=== PATIENT | male | born 1950 | race Caucasian/White ===

== ENCOUNTER 2023-04-14 12:21 | Outpatient (CLI) | payer OTHER, SELFPAY ==
[2023-04-14 12:59] LABS: Partial Thromboplastin Time 25.8 SECONDS (22.3-36.8); Prothrombin Time 13.9 Seconds (11.1-14.7)
[2023-04-14 13:05] LABS: Anion Gap 3 mmol/L (8-16); Blood Urea Nitrogen 33 mg/dL (9-20); Calcium 9.8 mg/dL (8.4-10.2); Carbon Dioxide 34 mmol/L (22-30); Chloride 100 mmol/L (98-107); Estimated Glomerular Filt Rate 35; Glucose 371 mg/dL (65-110); Potassium 3.9 mmol/L (3.4-5.0); Sodium 137 mmol/L (137-145)
== END 2023-04-14 12:22 | disposition home or self-care (01) ==
LOC: ANHSURGERY 12:27
PROVIDERS: Anesthesiology; PCP Internal Medicine; Visit Provider Otolaryngology
DX: E11.22 Type 2 diabetes mellitus with diabetic chronic kidney disease (principal); I12.9 Hypertensive chronic kidney disease with stage 1 through stage 4 chronic kidney disease, or unspecified chronic kidney disease; N18.9 Chronic kidney disease, unspecified
CPT/HCPCS: 36415; 80048; 85610; 85730

== ENCOUNTER 2023-04-25 00:52 | Day surgery (SDC) | payer OTHER, SELFPAY ==
--- NOTE | 2023-04-11 15:45 | PC.NURSE ---
Report to the Outpatient Waiting Room, entrance under the green pavilion located off [facility], at time _0730 on date __04/25/23 . Planned Procedure Time: 929 . Time changes happen often and if your time is changed the preop area will call you the afternoon before. - You and your visitor will be asked to self-screen and do not enter if you have any COVID symptoms. - A mask is optional within the hospital at this time. Patients may have clear liquids (water, carbonated beverages, clear teas, apple juice) until 3 hours prior to surgery with a maximum of 20 ounces. - No food from midnight until time of surgery - Infants may have breast milk until 4 hours before surgery, infant formula 6 hours prior to surgery. - Children will be allowed to drink immediately following surgery. If applicable, please bring a bottle or sippy cup to assist with drinking. Juice, water, soda, and popsicles are readily available. For infants on formula, please bring formula the day of surgery. Pacifiers are allowed. Take the following medications with a SIP of water the morning of surgery: ___AMLODIPINE DO NOT STOP ANY OF YOUR OTHER PRESCRIPTION MEDICATIONS PRIOR TO SURGERY ?EXCEPT THE FOLLOWING Medications to discontinue per physician PLAVIX PER DR LUNDY ALL VITAMINS/SUPPLEMENTS 3 DAYS PRE OP.LAST DOSE 04/21/23 Please no make-up, nail setswana, hairspray, perfume, deodorant, or body powder the day of surgery. No jewelry (including any body piercings) or valuables the day of surgery, leave them at home. Please take a shower or bath the night before, or the morning of, surgery with an antibacterial soap. Wear comfortable, loose fitting clothing. Children are encouraged to wear pajamas. - Jewelry must be removed prior to entering the operating room. Rings and piercings that are not removed may be cut off. - The hospital will not accept responsibility for valuables. - Please leave all valuables, including medications, at home the day of surgery. If you are going home after surgery, a licensed explosives truck driver must drive you home. - NO public transportation without another adult if you receive anesthesia. - We recommend that an adult stay with you for 24 hours following discharge. - We also recommend that you do not drive, make important decision, drink alcoholic beverages, or take any drugs that were not prescribed by your health care provider for at least 24 hours after your discharge time. Follow any additional instructions given to you from your surgeon. If you or anyone in your household have experienced Covid symptoms in the past week, please notify your surgeon or the nurse liaison at the phone number below for possible testing. Telephone instructions given to __PATIENT and asked if any additional questions and then verbalized understanding. Patient advised to call surgeon office or pre surgery nurse liaison [phone] if any additional questions.
[2023-04-11 16:03] VITALS: BMI 23.2
[2023-04-25] VITALS (14 sets, daily range): BP systolic 150–210; BP diastolic 53–77; PULSE 58–77; RESP 12–20; TEMP 36.3–36.4; O2SAT 97–100; BMI 23.8
[2023-04-25] MEDS: LACTATED RINGERS 1,000 ML 30 ML IV CONT ×2 (08:35→13:10)
[2023-04-25] MEDS: ACETAMINOPHEN 500 MG TABLET 1000 MG PO (08:45)
[2023-04-25 08:49] LABS: Glucose Point of Care 222 mg/dl (65-105)
--- NOTE | 2023-04-25 09:00 | PM.IMHP ---
H&P: HPI History of Present Illness Date/Time: 04/25/23 09:00 Chief Complaint: Goiter Narrative: Goiter Review of Systems Review of Systems: All systems reviewed & are unremarkable except as noted in HPI and below PMFSH Social History Social History Smoking packs per day: 1.5 Smoking cigarettes per day: 30.0 Years smoked: 25 Smoking pack-years: 37.50 Smoking status: Former smoker Tobacco type: cigarettes Smoking end date: 11/07/12 Alcohol intake: current Alcohol use details: ONE DRINK PER MONTH Living arrangements: with family Spiritual care concerns: No Meds Home Medications and Allergies Home Medications Medication Instructions Recorded Confirmed Type amlodipine 10 mg tablet 10 mg PO DAILY 04/11/23 04/11/23 History atorvastatin 40 mg tablet 40 mg PO DAILY 04/11/23 04/11/23 History calcitriol 0.25 mcg capsule 0.23 mcg PO DAILY 04/11/23 04/11/23 History cholecalciferol (vitamin D3) 1,250 1,250 mcg PO 2XW 04/11/23 04/25/23 History mcg (50,000 unit) tablet clopidogrel 75 mg tablet 75 mg PO DAILY 04/11/23 04/25/23 History empagliflozin 25 mg tablet 25 mg PO DAILY 04/11/23 04/11/23 History (Jardiance) fenofibrate nanocrystallized 145 145 mg PO DAILY 04/11/23 04/11/23 History mg tablet finasteride 5 mg tablet 5 mg PO DAILY 04/11/23 04/11/23 History glipizide 5 mg tablet 10 mg PO BID 04/11/23 04/11/23 History insulin degludec 100 unit/mL (3 10 unit subcut PRN PRN 04/11/23 04/11/23 History mL) subcutaneous pen (Tresiba Hyperglycemia FlexTouch U-100 insulin) losartan 100 1 tablet PO DAILY 04/11/23 04/11/23 History mg-hydrochlorothiazide 25 mg tablet semaglutide 7 mg tablet (Rybelsus) 7 mg PO DAILY 04/11/23 04/11/23 History tamsulosin 0.4 mg capsule 0.4 mg PO DAILY 04/11/23 04/11/23 History Allergies Allergy/AdvReac Type Severity Reaction Status Date / Time Penicillins Allergy Unknown Verified 04/25/23 08:35 Vital Signs Vital Signs - 24 hr 04/25/23 07:45 Temperature 36.4 C L Pulse Rate 60 Respiratory Rate 16 Blood Pressure 179/75 H Pulse Oximetry 99 Oxygen Delivery Room Air Exam Narrative: Bilateral diffuse goiter with numerous thyroid nodules. Rest of exam wnl. Assessment and Plan Assessment and plan (1) Multinodular goiter (nontoxic): Code(s): E04.2 - Nontoxic multinodular goiter Status: Acute Plan Titus has bilateral multinodular goiter, no malignancy, mild compressive symptoms, here for total thyroidectomy. R/b/a reviewed consent signed and verified, pt elects to proceed. Refer to outpt H&P for full details.
--- NOTE | 2023-04-25 09:02 | WPDANESEPPF ---
Anes - Initial Pre Proc Eval Procedure: Operation Date: 04/25/23 09:30 Proposed Procedures p Total Thyroidectomy - Chadwick Duran MD Date/Time: 04/25/23 09:02 Surgeon: Chadwick Duran MD Pre Op Diagnosis: Thyroid Nodule Patient Data Age: 72 Gender: M Height: 1.78 m Weight: 75.25 kg Last Vital Signs Temp 36.4 C L 04/25/23 07:45 Pulse 60 04/25/23 07:45 Resp 16 04/25/23 07:45 BP 179/75 H 04/25/23 07:45 Pulse Ox 99 04/25/23 07:45 O2 Del Method Room Air 04/25/23 07:45 Allergies Allergy/AdvReac Type Severity Reaction Status Date / Time Penicillins Allergy Unknown Verified 04/25/23 08:35 Home Medications Medication Instructions Recorded Confirmed Type amlodipine 10 mg tablet 10 mg PO DAILY 04/11/23 04/11/23 History atorvastatin 40 mg tablet 40 mg PO DAILY 04/11/23 04/11/23 History calcitriol 0.25 mcg capsule 0.23 mcg PO DAILY 04/11/23 04/11/23 History cholecalciferol (vitamin D3) 1,250 1,250 mcg PO 2XW 04/11/23 04/25/23 History mcg (50,000 unit) tablet clopidogrel 75 mg tablet 75 mg PO DAILY 04/11/23 04/25/23 History empagliflozin 25 mg tablet 25 mg PO DAILY 04/11/23 04/11/23 History (Jardiance) fenofibrate nanocrystallized 145 145 mg PO DAILY 04/11/23 04/11/23 History mg tablet finasteride 5 mg tablet 5 mg PO DAILY 04/11/23 04/11/23 History glipizide 5 mg tablet 10 mg PO BID 04/11/23 04/11/23 History insulin degludec 100 unit/mL (3 10 unit subcut PRN PRN 04/11/23 04/11/23 History mL) subcutaneous pen (Tresiba Hyperglycemia FlexTouch U-100 insulin) losartan 100 1 tablet PO DAILY 04/11/23 04/11/23 History mg-hydrochlorothiazide 25 mg tablet semaglutide 7 mg tablet (Rybelsus) 7 mg PO DAILY 04/11/23 04/11/23 History tamsulosin 0.4 mg capsule 0.4 mg PO DAILY 04/11/23 04/11/23 History Laboratory Tests 04/25/23 08:43 POC Capillary Glucose 222 H mg/dl (65-105) Patient hx anesthesia problems: none Family hx anesthesia problems: none Results Review: All pre-operative results and documents have been reviewed as part of the pre-operative evaluation. [facility] Past Medical History Medical History (Updated 04/25/23 @ 09:03 by Dennis Ramirez MD) Diabetes HTN (hypertension) Social History Social History Smoking packs per day: 1.5 Smoking cigarettes per day: 30.0 Years smoked: 25 Smoking pack-years: 37.50 Smoking status: Former smoker Tobacco type: cigarettes Smoking end date: 11/07/12 Alcohol intake: current Alcohol use details: ONE DRINK PER MONTH Living arrangements: with family Spiritual care concerns: No Anes - Eval Final PreProcedure Day of Procedure 04/25/23 09:02 Patient weight: normal Heart: regular rate and rhythm Lungs: clear to auscultation Airway: Mallampati scale class II Neurological: alert and oriented Last oral intake: >/= 8 hours ASA classification: III Emergent: no Anesthetic plan: proceed Anesthesia type and monitoring: general ETT and standard monitoring Results Review: All pre-operative results and documents have been reviewed as part of the pre-operative evaluation. Informed Consent: The patient's anesthetic plan and its attendant risks and benefits were discussed with the patient/family/POA. Questions were solicited and answers provided to the satisfaction of the patient/family/POA.
--- NOTE | 2023-04-25 09:08 | SUR.PREOP ---
0908- Notified Dr. Ramirez patient's BG 222 when checked at 0844, patient takes oral medications. Per Dr. Ramirez no new orders at this time.
--- NOTE | 2023-04-25 09:23 | WPDHPUPDATE1 ---
History and Physical Update Update Date/Time: 04/25/23 09:23 History and Physical has been reviewed, including an updated exam of the patient. There are NO changes in the patient's condition. Risks, benefits, and alternatives have been discussed and questions answered. Patient agrees to proceed with procedure.
[2023-04-25] MEDS: ceFAZolin 2 GM/D5W 50 ML 2 GM/50 ML BAG IVPB (09:36)
[2023-04-25] MEDS: LIDO 1%/EPINEPHRINE 1:100,000 50 ML VIAL INFILTRATE (10:07)
--- NOTE | 2023-04-25 13:11 | W.PM.PROC2 ---
Procedure Note - Detailed Date of Procedure 04/25/23 Pre-op Diagnosis Thyroid goiter with multiple nodules Post-op Diagnosis Same Procedure Performed Total thyroidectomy with laryngeal nerve monitoring Surgeon Chadwick Duran MD Anesthesia General Indications Goiter Findings massive bilateral thyroid goiter with diffuse nodules. Bilateral RLN's stimulated and intact at end of case. All parathyroids identified and preserved. 7mm LYNETTE flat drain. Description of Procedure On the date of the procedure the patient was met in the preoperative area. The risks and benefits of the procedure reviewed with the patient who elected to proceed.? The patient was brought back to the operating room by the anesthesia team and underwent general endotracheal anesthesia using the glidescope to visualize the NIM tube being appropriately placed.? Once an adequate plane of anesthesia was obtained a timeout was performed to assure the correct patient identity and procedure to be performed which they were. The patient's neck landmarks were marked and the proposed incision was injected with 1% lidocaine with 1:100,000 epinephrine.? The patient was then prepped and draped in the normal fashion for a total thyroidectomy.? Neuro monitoring with a NIM endotracheal tube and nerve monitor were utilized throughout the surgery.? A 12 cm incision was made two finger breadths above the sternal notch in a skin crease.?The incision was carried through subcutaneous tissue to the subcutaneous fat.? Electrocautery was used down to the level of the platysma which was incised. The strap muscles were identified and at the midline through the raphae.? The thyroid was identified and the strap muscles were elevated off of the left lobe. Due to the great size of the gland, the strap muscles were divided horizontally to improve access. The SCM's were skeletonized bilaterally and the strap muscles were divided laterally. The left thyroid lobe was retracted medially and blunt dissection was carried out to free the thyroid from the surrounding strap muscles.? Significant digital manipulation was utilized to elevate the thyroid free from surrounding fascia to help deliver the gland out of the incision. The superior pole of the thyroid was identified and the vessels were dissected and cauterized and ligated using harmonic scalpel.? The inferior pole was then identified and the vessels were similarly ligated with harmonic scalpel.? The thyroid was retracted medially and the superior parathyroid gland was identified and was dissected free from the thyroid gland.? The recurrent laryngeal nerve was as then identified and dissected free of surrounding tissue. The nerve was confirmed with the prass probe as intact and the correct anatomic tissue. With the thyroid free from the recurrent nerve, it was then elevated and retracted medially and dissected free from the trachea. Guerin?s ligament was taken down with bipolar and monopolar cautery.? The pyramidal lobe was also dissected free from surrounding tissue using harmonic. Once completed, the left lobe was placed back into the paratracheal bed and attention directed to the right side. Before doing that, the recurrent laryngeal nerve was confirmed to be stimulating and intact once again. Attention was then directed to the right thyroid lobe. It was retracted medially and blunt dissection was carried out to free the thyroid from the surrounding strap muscles.? Digital dissection was similarly utilized on this side to help deliver the gland out of the neck. The superior pole of the right thyroid was identified and the vessels were dissected and cauterized and ligated using harmonic scalpel.? The inferior pole was then identified and the vessels were similarly ligated with harmonic scalpel.? The thyroid was retracted medially and the superior parathyroid gland was identified and was dissected free from the thyroid gland.? The recurrent laryngeal nerve was
[2023-04-25 13:51] LABS: Albumin Level 2.9 g/dL (3.5-5.1); Anion Gap 6 mmol/L (8-16); Blood Urea Nitrogen 33 mg/dL (9-20); Calcium 8.5 mg/dL (8.4-10.2); Carbon Dioxide 25 mmol/L (22-30); Chloride 106 mmol/L (98-107); Estimated CRCL calculation 37 ml/min; Estimated Glomerular Filt Rate 40; Glucose 186 mg/dL (65-110); Phosphorus 4.3 mg/dL (2.5-4.5); Potassium 4.1 mmol/L (3.4-5.0); Sodium 137 mmol/L (137-145)
[2023-04-25] MEDS: hydrALAZINE HCL 20 MG/ML VIAL 10 MG IV PUSH ×2 (13:51→14:49)
[2023-04-25 14:00] LABS: Glucose Point of Care 176 mg/dl (65-105)
[2023-04-25] MEDS: fentaNYL CITRATE INJ (*CRX) 100 MCG/2 ML VIAL 25 MCG IV PUSH ×2 (14:30→14:51)
[2023-04-25 14:54] LABS: Parathyroid Intact 74.5 pg/mL (7.5-53.5)
[2023-04-25] MEDS: oxyCODONE HCL (*CRX) 5 MG TAB IR PO (15:49)
[2023-04-28 16:30] LABS: Ionized Calcium 5.2 mg/dL (4.7-5.5)
== END 2023-04-25 16:35 | disposition home or self-care (01) ==
PROVIDERS: PCP Internal Medicine; Visit Provider Otolaryngology
PROC: (CPT 60240; principal; 2023-04-25 09:30)
DX: E04.2 Nontoxic multinodular goiter (principal); I10 Essential (primary) hypertension; E11.9 Type 2 diabetes mellitus without complications; Z87.891 Personal history of nicotine dependence; Z79.4 Long term (current) use of insulin; Z79.84 Long term (current) use of oral hypoglycemic drugs; Z79.02 Long term (current) use of antithrombotics/antiplatelets
CPT/HCPCS: 60240; 36415; 80069; 82330; 82948; 83970; 88307; A9270; J0330; J0360; J0690; J1100; J2250; J2405; J2704; J3010; J7120

== ENCOUNTER 2025-05-07 12:55 | Outpatient (CLI) | payer OTHER, SELFPAY ==
--- NOTE | ~2025-05-07 | XR_ITS ---
AP and lateral views of the left tibia/fibula Clinical History: Status post fall Findings: No acute fracture or dislocation is seen. Osseous alignment is anatomic. Joint spaces are p reserved without significant erosive or degenerative change. Soft tissues are unremarkable. Impression: Unremarkable left tib-fib radiographs. Reviewed, dictated and finalized at location . Impression: Unremarkable left tib-fib radiographs.
== END 2025-05-07 12:56 | disposition home or self-care (01) ==
LOC: MICIMG 12:56
PROVIDERS: PCP Internal Medicine
DX: S89.82XA Other specified injuries of left lower leg, initial encounter (principal); X58.XXXA Exposure to other specified factors, initial encounter; Z91.81 History of falling
CPT/HCPCS: 73590